=== PATIENT | female | born 1940 | race Caucasian/White ===

== ENCOUNTER 2017-12-01 17:02 | Emergency (ER) | payer MEDICARE, OTHER ==
[~2017-12-01] VITALS: Ht 170.2 cm; Wt 54.4 kg
[~2017-12-01 17:02] MED LIST: ADV50500 IH; ALBU6.7H3 IH; ALEN70TA48 PO; AMLO2.5T2 PO; CITA-278 PO; COU5T PO; FOLI0.4T2 PO; FURO-150 PO; GABA-338 PO; GUAI120L55 PO; HYDR-3965 PO; LOVA40TA76 PO; POTA20TA19 PO; TIOT18CA7 IH
[2017-12-01 18:00] LABS: INR 2.5 INR; PROTHROMBIN TIME 25.4 SECONDS (9.0-12.0)
[2017-12-01 18:41] VITALS: BP 138/63
== END 2017-12-01 18:43 | disposition home or self-care (01) ==
LOC: ER 17:03
DX: S60.212A Contusion of left wrist, initial encounter (principal); S50.12XA Contusion of left forearm, initial encounter; I25.10 Atherosclerotic heart disease of native coronary artery without angina pectoris; E78.00 Pure hypercholesterolemia, unspecified; J44.9 Chronic obstructive pulmonary disease, unspecified; Z86.711 Personal history of pulmonary embolism; Z95.1 Presence of aortocoronary bypass graft; Z90.710 Acquired absence of both cervix and uterus; Z88.6 Allergy status to analgesic agent; Z79.01 Long term (current) use of anticoagulants; Z79.899 Other long term (current) drug therapy; W18.39XA Other fall on same level, initial encounter; Y93.89 Activity, other specified; Y92.89 Other specified places as the place of occurrence of the external cause; Y99.8 Other external cause status
CPT/HCPCS: 36415; 72170; 73110; 85610; 99285

== ENCOUNTER 2018-01-01 14:09 | Inpatient (IN) | payer MEDICARE, OTHER ==
[~2018-01-01] VITALS: Ht 162.6 cm; Wt 65.0 kg
[2018-01-01] VITALS (8 sets, daily range): BP systolic 125–139; BP diastolic 44–73
[2018-01-01 15:03] LABS: BASOPHILS % (AUTO) 0.4 % (0-1); EOSINOPHILS # (AUTO) 0.3 X10'3 (0-0.9); EOSINOPHILS % (AUTO) 3.6 % (0-6); HEMOGLOBIN 7.2 g/dl (12.0-16.0); LYMPHOCYTES # (AUTO) 0.9 X10'3 (1.1-4.8); LYMPHOCYTES % (AUTO) 11.5 % (21-51); MEAN CORPUSCULAR HEMOGLOBIN 28.5 PG (27.0-31.0); MEAN CORPUSCULAR HGB CONC 32.9 % (33.0-36.5); MEAN CORPUSCULAR VOLUME 86.7 FL (78-98); MONOCYTES % (AUTO) 12.5 % (2-12); NEUTROPHILS # (AUTO) 5.5 X10'3 (1.8-7.7); PLATELET COUNT 302 X10'3 (140-440); RED BLOOD COUNT 2.51 X10'6 (4.20-5.60); RED CELL DISTRIBUTION WIDTH 13.9 % (11.5-14.5); WHITE BLOOD COUNT 7.7 X10'3 (4.5-11.0)
[2018-01-01 15:09] LABS: HEMATOCRIT 21.7 % (35.0-45.0)
[2018-01-01 15:17] LABS: ALANINE AMINOTRANSFERASE 17 U/L (12-78); ALBUMIN 2.9 G/DL (3.4-5.0); ALBUMIN/GLOBULIN RATIO 0.9 (1.1-1.5); ALKALINE PHOSPHATASE 53 IU/L (46-116); ANION GAP 5 (8-16); ASPARTATE AMINO TRANSFERASE 19 U/L (10-37); BILIRUBIN,TOTAL 0.2 MG/DL (0.1-1.0); BLOOD UREA NITROGEN 35 MG/DL (7-18); BUN/CREATININE RATIO 11.7 (6.6-38.0); CALCIUM 8.9 MG/DL (8.5-10.1); CHLORIDE 100 MMOL/L (99-107); CREATININE 2.98 MG/DL (0.40-0.90); GLUCOSE 85 MG/DL (70-104); POTASSIUM 4.1 MMOL/L (3.5-5.1); SODIUM 139 MMOL/L (135-145); TOTAL CARBON DIOXIDE 33.7 MMOL/L (24-32); TOTAL PROTEIN 6.3 G/DL (6.4-8.2); eGFR 15 ML/MIN
[2018-01-01] MEDS: dextrose 5%-1/2 normal saline 1,000 ML IV SCH (16:17)
[2018-01-01] MEDS ORDERED: mag hydrox/Alum hydrox/simeth 30ml oral suspension PO PRN (16:20)
[2018-01-01] MEDS ORDERED: acetaminophen 325mg tablet PO PRN (16:20)
[2018-01-01] MEDS ORDERED: HYDROmorphone inj. 0.5 MG/0.5 ML DISP.SYRIN IV PRN ×2 (16:20)
[2018-01-01] MEDS ORDERED: metoclopramide 5 mg/ml inj IV PRN (16:20)
[2018-01-01] MEDS ORDERED: ondansetron/PF 4mg/2ml inj IV PRN (16:20)
[2018-01-01] MEDS ORDERED: acetaminophen 650mg rectal suppository RC PRN (16:20)
[2018-01-01] MEDS ORDERED: diphenhydrAMINE 25mg capsule PO PRN (16:20)
[2018-01-01] MEDS ORDERED: magnesium hydroxide 30ml (MOM) UD suspension PO PRN (16:20)
[2018-01-01] MEDS ORDERED: diphenhydrAMINE 50 mg/ml inj IV PRN (16:20)
[2018-01-01] MEDS ORDERED: HYDROcodone/acetaminophen 5mg/325mg tablet PO PRN (16:20)
[2018-01-01] MEDS ORDERED: morphine 4 MG/ML inj SYRINge IV PRN ×2 (16:20)
[2018-01-01 16:53] LABS: PARTIAL THROMBOPLASTIN TIME 27 SECONDS (22-32); PROTHROMBIN TIME 10.7 SECONDS (9.0-12.0)
[2018-01-01 16:56] LABS: HEMOGLOBIN A1C 5.5 % (4.5-6.2)
[2018-01-01 17:05] LABS: MAGNESIUM 2.1 MG/DL (1.5-2.4); PHOSPHORUS 4.6 MG/DL (2.3-4.5)
[2018-01-01] MEDS ORDERED: FERR325T28 PO (17:49)
[2018-01-01 18:02] LABS: CLARITY,URINE Clear (Clear); COLOR,URINE Yellow (Yellow); GLUCOSE, URINE Negative (Neg); KETONES,URINE Negative (Neg); LEUKOCYTE ESTERASE ,URINE Negative (Neg); NITRITES, URINE Negative (Neg); OCCULT BLOOD,URINE Negative (Neg); PH,URINE 6.5 (4.8-8.0); PROTEIN,URINE Negative (Neg); UROBILINOGEN,URINE 0.2 E.U/dL (0.2-1.0)
[2018-01-01 18:03] LABS: UA COLLECTION TYPE CLN CATCH MIDSTREAM
[2018-01-01 18:31] LABS: PROTHROMBIN TIME 10.7 SECONDS (9.0-12.0)
[2018-01-01] MEDS ORDERED: albuterol 2.5 MG/3 ML nebule NEB SCH (19:00)
[2018-01-01] MEDS ORDERED: furosemide 40mg/4ml inj IV ONE (19:30)
[2018-01-01] MEDS ORDERED: warfarin 5mg tablet PO ONE (21:00)
[2018-01-01] MEDS ORDERED: temazepam 15mg capsule PO PRN (21:00)
[2018-01-01] MEDS: gabapentin 300mg capsule PO SCH (21:27)
[2018-01-01] MEDS: docusate sod 100mg capsule PO SCH (21:27)
[2018-01-02] VITALS (7 sets, daily range): BP systolic 109–150; BP diastolic 32–100
[2018-01-02] MEDS: ipratropium 0.5 MG/2.5ML nebule IH SCH ×2 (00:01)
[2018-01-02] MEDS: dextrose 5%-1/2 normal saline 1,000 ML IV SCH ×2 (02:08→12:00)
[2018-01-02 06:04] LABS: BASOPHILS # (AUTO) 0.1 X10'3 (0-0.2); BASOPHILS % (AUTO) 1.2 % (0-1); EOSINOPHILS # (AUTO) 0.3 X10'3 (0-0.9); EOSINOPHILS % (AUTO) 4.8 % (0-6); HEMATOCRIT 30.3 % (35.0-45.0); LYMPHOCYTES # (AUTO) 0.8 X10'3 (1.1-4.8); LYMPHOCYTES % (AUTO) 11.9 % (21-51); MEAN CORPUSCULAR HEMOGLOBIN 27.9 PG (27.0-31.0); MEAN CORPUSCULAR HGB CONC 33.1 % (33.0-36.5); MEAN CORPUSCULAR VOLUME 84.5 FL (78-98); MEAN PLATELET VOLUME 8.5 FL (7.4-10.4); MONOCYTES # (AUTO) 0.9 X10'3 (0-0.9); NEUTROPHILS # (AUTO) 4.4 X10'3 (1.8-7.7); NEUTROPHILS % (AUTO) 68.1 % (42-75); PLATELET COUNT 276 X10'3 (140-440); RED BLOOD COUNT 3.58 X10'6 (4.20-5.60); RED CELL DISTRIBUTION WIDTH 15.5 % (11.5-14.5); WHITE BLOOD COUNT 6.4 X10'3 (4.5-11.0)
[2018-01-02 06:07] LABS: INR 1.1 INR; PROTHROMBIN TIME 11.1 SECONDS (9.0-12.0)
[2018-01-02 06:29] LABS: ALANINE AMINOTRANSFERASE 19 U/L (12-78); ALBUMIN 3.1 G/DL (3.4-5.0); ALBUMIN/GLOBULIN RATIO 0.9 (1.1-1.5); ALKALINE PHOSPHATASE 59 IU/L (46-116); ANION GAP 7 (8-16); ASPARTATE AMINO TRANSFERASE 19 U/L (10-37); BILIRUBIN,TOTAL 0.7 MG/DL (0.1-1.0); BLOOD UREA NITROGEN 34 MG/DL (7-18); BUN/CREATININE RATIO 11.2 (6.6-38.0); CALCIUM 9.5 MG/DL (8.5-10.1); CHLORIDE 102 MMOL/L (99-107); CREATININE 3.03 MG/DL (0.40-0.90); GLUCOSE 112 MG/DL (70-104); POTASSIUM 3.8 MMOL/L (3.5-5.1); SODIUM 142 MMOL/L (135-145); TOTAL CARBON DIOXIDE 33.4 MMOL/L (24-32); TOTAL PROTEIN 6.7 G/DL (6.4-8.2); eGFR 15 ML/MIN
[2018-01-02] MEDS: ipratropium/albuterol 3ml nebule NEB SCH ×4 (07:22→21:26)
[2018-01-02] MEDS: budesonide 0.5mg/2ml UD nebule IH SCH ×3 (07:22→21:26)
[2018-01-02] MEDS ORDERED: amLODIPine 2.5mg tablet PO SCH (08:00)
[2018-01-02] MEDS: pantoprazole 40mg Tablet.DR PO SCH (08:55)
[2018-01-02] MEDS: docusate sod 100mg capsule PO SCH ×2 (08:55→20:06)
[2018-01-02] MEDS: folic acid 0.4mg tablet PO SCH (08:56)
[2018-01-02] MEDS: atorvastatin 10mg tablet PO SCH (08:56)
[2018-01-02] MEDS: gabapentin 300mg capsule PO SCH ×3 (08:58→22:54)
[2018-01-02 13:25] LABS: ABG BASE EXCESS 4.5 mmol/L (-2.0-3.0); ABG HCO3 30.3 mmol/L (22.0-26.0); ABG OXYGEN SATURATION 97.1 % (95-98); ABG PCO2 (T) 51.4 mmHg (32.0-45.0); ABG PH (T) 7.389 (7.350-7.450); ABG PO2 (T) 97.7 mmHg (83-108); ALLEN'S TEST Positive; FLOW 4 L/min; FMetHb 0.1 % (0.3-1.12); TOTAL HEMOGLOBIN 10.4 G/dl (12.0-16.0)
[2018-01-02] MEDS ORDERED: heparin 10,000 units/1 ML INJ IV PRN (15:30)
[2018-01-02] MEDS ORDERED: heparin 10,000 units/1 ML INJ IV ONE (15:30)
[2018-01-02 16:31] LABS: BASOPHILS # (AUTO) 0.1 X10'3 (0-0.2); BASOPHILS % (AUTO) 1.1 % (0-1); EOSINOPHILS # (AUTO) 0.3 X10'3 (0-0.9); EOSINOPHILS % (AUTO) 4.7 % (0-6); HEMATOCRIT 26.3 % (35.0-45.0); HEMOGLOBIN 8.8 g/dl (12.0-16.0); LYMPHOCYTES # (AUTO) 0.8 X10'3 (1.1-4.8); LYMPHOCYTES % (AUTO) 14.1 % (21-51); MEAN CORPUSCULAR HEMOGLOBIN 28.3 PG (27.0-31.0); MEAN CORPUSCULAR HGB CONC 33.4 % (33.0-36.5); MEAN CORPUSCULAR VOLUME 84.7 FL (78-98); MONOCYTES % (AUTO) 19.2 % (2-12); NEUTROPHILS # (AUTO) 3.3 X10'3 (1.8-7.7); NEUTROPHILS % (AUTO) 60.9 % (42-75); PLATELET COUNT 230 X10'3 (140-440); RED CELL DISTRIBUTION WIDTH 15.9 % (11.5-14.5); WHITE BLOOD COUNT 5.4 X10'3 (4.5-11.0)
[2018-01-02 16:51] LABS: % IRON SATURATION 7 % (11-46); IRON 20 UG/DL (49-151); TOTAL IRON BINDING CAPACITY 268 UG/DL (259-388)
[2018-01-02 17:44] LABS: TOTAL CELLS COUNTED 100
[2018-01-02 17:45] LABS: PLATELET ESTIMATE NORMAL
[2018-01-02 17:58] LABS: ANISOCYTOSIS 1+
[2018-01-02 17:59] LABS: POLYCHROMASIA FEW
[2018-01-02] MEDS: carVEDilol 3.125mg tablet PO SCH (20:03)
[2018-01-02] MEDS ORDERED: warfarin 5mg tablet PO SCH (21:00)
[2018-01-02] MEDS ORDERED: warfarin 5mg tablet PO ONE ×2 (21:00)
[2018-01-02 23:13] LABS: BASOPHILS # (AUTO) 0.1 X10'3 (0-0.2); BASOPHILS % (AUTO) 1.1 % (0-1); EOSINOPHILS # (AUTO) 0.4 X10'3 (0-0.9); EOSINOPHILS % (AUTO) 6.9 % (0-6); HEMATOCRIT 28.1 % (35.0-45.0); HEMOGLOBIN 9.5 g/dl (12.0-16.0); LYMPHOCYTES # (AUTO) 0.8 X10'3 (1.1-4.8); LYMPHOCYTES % (AUTO) 14.1 % (21-51); MEAN CORPUSCULAR HEMOGLOBIN 28.3 PG (27.0-31.0); MEAN CORPUSCULAR HGB CONC 33.9 % (33.0-36.5); MEAN CORPUSCULAR VOLUME 83.4 FL (78-98); MEAN PLATELET VOLUME 7.7 FL (7.4-10.4); MONOCYTES # (AUTO) 0.9 X10'3 (0-0.9); MONOCYTES % (AUTO) 15.7 % (2-12); NEUTROPHILS # (AUTO) 3.7 X10'3 (1.8-7.7); NEUTROPHILS % (AUTO) 62.2 % (42-75); PLATELET COUNT 235 X10'3 (140-440); RED BLOOD COUNT 3.37 X10'6 (4.20-5.60); RED CELL DISTRIBUTION WIDTH 15.7 % (11.5-14.5)
[2018-01-03] VITALS: BP 139/51
[2018-01-03] MEDS: dextrose 5%-1/2 normal saline 1,000 ML IV SCH ×3 (00:22→23:54)
[2018-01-03 02:28] LABS: BASOPHILS # (AUTO) 0.1 X10'3 (0-0.2); BASOPHILS % (AUTO) 1.5 % (0-1); EOSINOPHILS # (AUTO) 0.3 X10'3 (0-0.9); EOSINOPHILS % (AUTO) 6.3 % (0-6); HEMATOCRIT 28.5 % (35.0-45.0); HEMOGLOBIN 9.4 g/dl (12.0-16.0); LYMPHOCYTES # (AUTO) 0.7 X10'3 (1.1-4.8); LYMPHOCYTES % (AUTO) 12.8 % (21-51); MEAN CORPUSCULAR HEMOGLOBIN 28.3 PG (27.0-31.0); MEAN CORPUSCULAR HGB CONC 33.1 % (33.0-36.5); MEAN CORPUSCULAR VOLUME 85.4 FL (78-98); MEAN PLATELET VOLUME 8.4 FL (7.4-10.4); MONOCYTES # (AUTO) 0.8 X10'3 (0-0.9); MONOCYTES % (AUTO) 16.1 % (2-12); NEUTROPHILS # (AUTO) 3.3 X10'3 (1.8-7.7); NEUTROPHILS % (AUTO) 63.3 % (42-75); PLATELET COUNT 238 X10'3 (140-440); RED BLOOD COUNT 3.33 X10'6 (4.20-5.60); RED CELL DISTRIBUTION WIDTH 15.3 % (11.5-14.5); WHITE BLOOD COUNT 5.2 X10'3 (4.5-11.0)
[2018-01-03 02:34] LABS: INR 1.4 INR; PROTHROMBIN TIME 13.9 SECONDS (9.0-12.0)
[2018-01-03 07:00] VITALS: BP 101/62
[2018-01-03] MEDS: ipratropium/albuterol 3ml nebule NEB SCH ×4 (07:01→19:09)
[2018-01-03] MEDS: budesonide 0.5mg/2ml UD nebule IH SCH ×2 (07:01→19:08)
[2018-01-03] MEDS: docusate sod 100mg capsule PO SCH ×2 (08:15→20:07)
[2018-01-03] MEDS: pantoprazole 40mg Tablet.DR PO SCH (08:15)
[2018-01-03] MEDS: carVEDilol 3.125mg tablet PO SCH ×2 (08:16→20:07)
[2018-01-03] MEDS: gabapentin 300mg capsule PO SCH ×2 (08:16→13:12)
[2018-01-03] MEDS: clopidogrel 75mg tablet PO SCH (08:16)
[2018-01-03] MEDS: folic acid 0.4mg tablet PO SCH (08:16)
[2018-01-03] MEDS: atorvastatin 10mg tablet PO SCH (08:16)
[2018-01-03 09:27] LABS: BASOPHILS # (AUTO) 0.1 X10'3 (0-0.2); BASOPHILS % (AUTO) 0.9 % (0-1); EOSINOPHILS # (AUTO) 0.3 X10'3 (0-0.9); EOSINOPHILS % (AUTO) 5.4 % (0-6); HEMATOCRIT 31.2 % (35.0-45.0); HEMOGLOBIN 10.2 g/dl (12.0-16.0); LYMPHOCYTES # (AUTO) 0.8 X10'3 (1.1-4.8); LYMPHOCYTES % (AUTO) 13.4 % (21-51); MEAN CORPUSCULAR HEMOGLOBIN 27.8 PG (27.0-31.0); MEAN CORPUSCULAR HGB CONC 32.8 % (33.0-36.5); MEAN CORPUSCULAR VOLUME 84.9 FL (78-98); MEAN PLATELET VOLUME 8.4 FL (7.4-10.4); MONOCYTES # (AUTO) 1.1 X10'3 (0-0.9); MONOCYTES % (AUTO) 17.3 % (2-12); NEUTROPHILS # (AUTO) 3.9 X10'3 (1.8-7.7); PLATELET COUNT 238 X10'3 (140-440); RED BLOOD COUNT 3.68 X10'6 (4.20-5.60); RED CELL DISTRIBUTION WIDTH 15.8 % (11.5-14.5); WHITE BLOOD COUNT 6.2 X10'3 (4.5-11.0)
[2018-01-03 09:41] LABS: ALANINE AMINOTRANSFERASE 18 U/L (12-78); ALBUMIN 2.8 G/DL (3.4-5.0); ALBUMIN/GLOBULIN RATIO 0.8 (1.1-1.5); ALKALINE PHOSPHATASE 54 IU/L (46-116); ANION GAP 7 (8-16); ASPARTATE AMINO TRANSFERASE 16 U/L (10-37); BILIRUBIN,TOTAL 0.3 MG/DL (0.1-1.0); BLOOD UREA NITROGEN 29 MG/DL (7-18); BUN/CREATININE RATIO 11.2 (6.6-38.0); CALCIUM 8.9 MG/DL (8.5-10.1); CHLORIDE 99 MMOL/L (99-107); CREATININE 2.59 MG/DL (0.40-0.90); GLUCOSE 108 MG/DL (70-104); POTASSIUM 3.9 MMOL/L (3.5-5.1); SODIUM 136 MMOL/L (135-145); TOTAL CARBON DIOXIDE 29.7 MMOL/L (24-32); TOTAL PROTEIN 6.4 G/DL (6.4-8.2); eGFR 18 ML/MIN
[2018-01-03 11:00] VITALS: BP 125/53
[2018-01-03] MEDS: levoFLOXACIN-Levaquin 750MG/D5 150 ML IV SCH (13:45)
[2018-01-03 19:00] VITALS: BP 121/69
[2018-01-03] MEDS ORDERED: warfarin 5mg tablet PO ONE (21:00)
[2018-01-03] MEDS: acetaminophen 325mg tablet PO PRN (21:44)
[2018-01-04] VITALS: BP 119/65
[2018-01-04] MEDS: albuterol 2.5 MG/3 ML nebule NEB PRN (01:50)
[2018-01-04] MEDS: ipratropium/albuterol 3ml nebule NEB SCH ×4 (06:21→20:09)
[2018-01-04 07:19] VITALS: BP 138/72
[2018-01-04] MEDS: pantoprazole 40mg Tablet.DR PO SCH (07:44)
[2018-01-04] MEDS: clopidogrel 75mg tablet PO SCH (07:44)
[2018-01-04] MEDS: docusate sod 100mg capsule PO SCH ×2 (07:44→20:00)
[2018-01-04] MEDS: gabapentin 300mg capsule PO SCH (07:44)
[2018-01-04] MEDS: folic acid 0.4mg tablet PO SCH (07:44)
[2018-01-04] MEDS: carVEDilol 3.125mg tablet PO SCH ×2 (07:44→19:16)
[2018-01-04] MEDS: atorvastatin 10mg tablet PO SCH (07:44)
[2018-01-04 07:50] LABS: BASOPHILS % (AUTO) 0.7 % (0-1); EOSINOPHILS # (AUTO) 0.1 X10'3 (0-0.9); EOSINOPHILS % (AUTO) 3.5 % (0-6); HEMOGLOBIN 9.4 g/dl (12.0-16.0); LYMPHOCYTES # (AUTO) 0.5 X10'3 (1.1-4.8); LYMPHOCYTES % (AUTO) 12.6 % (21-51); MEAN CORPUSCULAR HEMOGLOBIN 28.4 PG (27.0-31.0); MEAN CORPUSCULAR HGB CONC 33.3 % (33.0-36.5); MEAN CORPUSCULAR VOLUME 85.1 FL (78-98); MEAN PLATELET VOLUME 7.8 FL (7.4-10.4); MONOCYTES # (AUTO) 0.6 X10'3 (0-0.9); MONOCYTES % (AUTO) 16.8 % (2-12); NEUTROPHILS # (AUTO) 2.5 X10'3 (1.8-7.7); NEUTROPHILS % (AUTO) 66.4 % (42-75); PLATELET COUNT 195 X10'3 (140-440); RED CELL DISTRIBUTION WIDTH 15.5 % (11.5-14.5); WHITE BLOOD COUNT 3.8 X10'3 (4.5-11.0)
[2018-01-04 08:02] LABS: INR 1.9 INR; PROTHROMBIN TIME 19.6 SECONDS (9.0-12.0)
[2018-01-04 08:08] LABS: ALANINE AMINOTRANSFERASE 15 U/L (12-78); ALBUMIN 2.5 G/DL (3.4-5.0); ALBUMIN/GLOBULIN RATIO 0.7 (1.1-1.5); ALKALINE PHOSPHATASE 51 IU/L (46-116); ANION GAP 5 (8-16); ASPARTATE AMINO TRANSFERASE 18 U/L (10-37); BILIRUBIN,TOTAL 0.3 MG/DL (0.1-1.0); BLOOD UREA NITROGEN 28 MG/DL (7-18); BUN/CREATININE RATIO 10.7 (6.6-38.0); CHLORIDE 97 MMOL/L (99-107); CREATININE 2.62 MG/DL (0.40-0.90); GLUCOSE 101 MG/DL (70-104); POTASSIUM 3.7 MMOL/L (3.5-5.1); SODIUM 134 MMOL/L (135-145); TOTAL CARBON DIOXIDE 31.6 MMOL/L (24-32); TOTAL PROTEIN 5.9 G/DL (6.4-8.2); eGFR 18 ML/MIN
[2018-01-04] MEDS: acetaminophen 325mg tablet PO PRN (09:47)
[2018-01-04] MEDS: budesonide 0.5mg/2ml UD nebule IH SCH ×2 (10:53→20:09)
[2018-01-04 11:15] VITALS: BP 165/72
[2018-01-04] MEDS: LORazepam 2 mg/ml vial IV PRN (15:42)
[2018-01-04] MEDS: dextrose 5%-1/2 normal saline 1,000 ML IV SCH ×2 (16:20→23:22)
[2018-01-04 19:00] VITALS: BP 170/68
[2018-01-04] MEDS ORDERED: flumazenil 0.1 mg/ml inj. IV ONE ×2 (20:09→20:15)
[2018-01-04 20:16] LABS: ABG BASE EXCESS -1.9 mmol/L (-2.0-3.0); ABG HCO3 28.8 mmol/L (22.0-26.0); ABG OXYGEN SATURATION 92.6 % (95-98); ABG PCO2 (T) 87.1 mmHg (32.0-45.0); ABG PH (T) 7.138 (7.350-7.450); ABG PO2 (T) 76.3 mmHg (83-108); FCOHb 0.3 % (0.5-1.5); FLOW 2 L/min; FMetHb 0.3 % (0.3-1.12); PATIENT TEMPERATURE 37.1; RESPIRATORY RATE (OBSERVED) 20 b/min; TOTAL HEMOGLOBIN 11.5 G/dl (12.0-16.0)
[2018-01-04] MEDS ORDERED: furosemide 40mg/4ml inj IV ONE (20:20)
[2018-01-04] MEDS ORDERED: warfarin 5mg tablet PO ONE (21:00)
[2018-01-04 22:00] VITALS: BP 121/59
[2018-01-04 22:25] LABS: ABG BASE EXCESS 0.6 mmol/L (-2.0-3.0); ABG HCO3 27.9 mmol/L (22.0-26.0); ABG OXYGEN SATURATION 96.1 % (95-98); ABG PCO2 (T) 57.6 mmHg (32.0-45.0); ABG PH (T) 7.303 (7.350-7.450); ABG PO2 (T) 83.4 mmHg (83-108); ALLEN'S TEST Positive; FCOHb 0.1 % (0.5-1.5); FMetHb 0.2 % (0.3-1.12); FO2Hb 95.8 % (94-100); RESPIRATORY RATE 18 b/min; RESPIRATORY RATE (OBSERVED) 22 b/min; TOTAL HEMOGLOBIN 11.4 G/dl (12.0-16.0)
[2018-01-04 23:00] VITALS: BP 109/59
[2018-01-05 00:15] VITALS: BP 117/68
[2018-01-05 03:00] VITALS: BP 128/16
[2018-01-05 05:50] LABS: HEMATOCRIT 31.9 % (35.0-45.0); HEMOGLOBIN 10.7 g/dl (12.0-16.0); MEAN CORPUSCULAR HGB CONC 33.4 % (33.0-36.5); MEAN CORPUSCULAR VOLUME 83.8 FL (78-98); MEAN PLATELET VOLUME 8.4 FL (7.4-10.4); PLATELET COUNT 192 X10'3 (140-440); RED BLOOD COUNT 3.81 X10'6 (4.20-5.60); RED CELL DISTRIBUTION WIDTH 14.7 % (11.5-14.5); WHITE BLOOD COUNT 5.8 X10'3 (4.5-11.0)
[2018-01-05 06:00] VITALS: BP 122/59
[2018-01-05 06:05] LABS: INR 2.7 INR; PROTHROMBIN TIME 27.4 SECONDS (9.0-12.0)
[2018-01-05 06:28] LABS: ALANINE AMINOTRANSFERASE 18 U/L (12-78); ALBUMIN 2.7 G/DL (3.4-5.0); ALBUMIN/GLOBULIN RATIO 0.7 (1.1-1.5); ALKALINE PHOSPHATASE 57 IU/L (46-116); ANION GAP 11 (8-16); ASPARTATE AMINO TRANSFERASE 32 U/L (10-37); BILIRUBIN,TOTAL 0.3 MG/DL (0.1-1.0); BLOOD UREA NITROGEN 27 MG/DL (7-18); BUN/CREATININE RATIO 11.5 (6.6-38.0); CALCIUM 8.3 MG/DL (8.5-10.1); CHLORIDE 90 MMOL/L (99-107); CREATININE 2.34 MG/DL (0.40-0.90); GLUCOSE 122 MG/DL (70-104); SODIUM 128 MMOL/L (135-145); TOTAL CARBON DIOXIDE 26.9 MMOL/L (24-32); TOTAL PROTEIN 6.5 G/DL (6.4-8.2); eGFR 20 ML/MIN
[2018-01-05 06:45] LABS: TOTAL CELLS COUNTED 100
[2018-01-05 06:46] LABS: PLATELET ESTIMATE NORMAL
[2018-01-05] MEDS: budesonide 0.5mg/2ml UD nebule IH SCH ×2 (07:56→19:10)
[2018-01-05] MEDS: levoFLOXACIN-Levaquin 750MG/D5 150 ML IV SCH (07:56)
[2018-01-05] MEDS: pantoprazole 40mg Tablet.DR PO SCH (07:56)
[2018-01-05] MEDS: carVEDilol 3.125mg tablet PO SCH ×2 (08:02→20:10)
[2018-01-05] MEDS: clopidogrel 75mg tablet PO SCH (08:02)
[2018-01-05] MEDS: docusate sod 100mg capsule PO SCH ×2 (08:02→20:10)
[2018-01-05] MEDS: atorvastatin 10mg tablet PO SCH (08:02)
[2018-01-05] MEDS: gabapentin 300mg capsule PO SCH (08:08)
[2018-01-05] MEDS: folic acid 0.4mg tablet PO SCH (08:08)
[2018-01-05] MEDS ORDERED: guaiFENesin 200 MG/10 ML oral syrup UD cup PO PRN (09:30)
[2018-01-05] MEDS ORDERED: piperacillin/tazo 3.375gm/50ml 50 ML IV SCH (09:30)
[2018-01-05] MEDS: ipratropium/albuterol 3ml nebule NEB SCH ×5 (09:59→23:02)
[2018-01-05] MEDS: ferrous gluconate 324mg tablet PO SCH (10:30)
[2018-01-05] MEDS: methylPREDNISolone sod succ 125mg/2ml vial IV SCH ×3 (10:30→20:10)
[2018-01-05 11:00] VITALS: BP 136/72
[2018-01-05 11:26] LABS: ABG BASE EXCESS 4.2 mmol/L (-2.0-3.0); ABG HCO3 32.9 mmol/L (22.0-26.0); ABG OXYGEN SATURATION 89.7 % (95-98); ABG PCO2 (T) 68.5 mmHg (32.0-45.0); ABG PH (T) 7.295 (7.350-7.450); ABG PO2 (T) 51.9 mmHg (83-108); ALLEN'S TEST Positive; FCOHb 0.2 % (0.5-1.5); FLOW 4 L/min; FMetHb 0.1 % (0.3-1.12); FO2Hb 89.4 % (94-100); PATIENT TEMPERATURE 36.2; TOTAL HEMOGLOBIN 12.4 G/dl (12.0-16.0)
[2018-01-05 15:21] LABS: ABG BASE EXCESS 2.1 mmol/L (-2.0-3.0); ABG HCO3 28.2 mmol/L (22.0-26.0); ABG OXYGEN SATURATION 97.7 % (95-98); ABG PCO2 (T) 49.1 mmHg (32.0-45.0); ABG PH (T) 7.374 (7.350-7.450); ALLEN'S TEST Positive; FCOHb 0.2 % (0.5-1.5); FMetHb 0.2 % (0.3-1.12); FO2Hb 97.3 % (94-100); MINUTE VOLUME 11 L/min; PATIENT TEMPERATURE 36.5; PEEP 5 cm H2O; RESPIRATORY RATE 12 b/min; RESPIRATORY RATE (OBSERVED) 18 b/min; TIDAL VOLUME 796 mL; TOTAL HEMOGLOBIN 12.1 G/dl (12.0-16.0)
[2018-01-05] MEDS: metroNIDAZOLE-Flagyl 500mg/NS 100 ML IV SCH (18:22)
[2018-01-05] MEDS: vancomycin/NS 1 GM ADD-VANTAGE 250 ML IV SCH (18:43)
[2018-01-05 19:00] VITALS: BP 140/86
[2018-01-05] MEDS ORDERED: vancomycin/NS 1 GM ADD-VANTAGE 250 ML IV SCH (20:00)
[2018-01-05] MEDS: lactobacillus rhamnosus 10,000 MMU CELLS/CAPSULE PO SCH (20:10)
[2018-01-05] MEDS: cefepime 1GM/NS ADD-VANTAGE 100 ML IV SCH (20:57)
[2018-01-05 23:00] VITALS: BP 134/86
[2018-01-06] VITALS (9 sets, daily range): BP systolic 122–194; BP diastolic 48–97
[2018-01-06] MEDS: dextrose 5%-1/2 normal saline 1,000 ML IV SCH ×2 (00:02→14:58)
[2018-01-06] MEDS: metroNIDAZOLE-Flagyl 500mg/NS 100 ML IV SCH ×4 (00:02→23:34)
[2018-01-06] MEDS: methylPREDNISolone sod succ 125mg/2ml vial IV SCH ×4 (01:48→20:25)
[2018-01-06] MEDS: ipratropium/albuterol 3ml nebule NEB SCH ×6 (02:59→22:59)
[2018-01-06 05:35] LABS: BASOPHILS % (AUTO) 0.2 % (0-1); EOSINOPHILS % (AUTO) 0 % (0-6); HEMATOCRIT 30.9 % (35.0-45.0); HEMOGLOBIN 10.5 g/dl (12.0-16.0); LYMPHOCYTES # (AUTO) 0.3 X10'3 (1.1-4.8); LYMPHOCYTES % (AUTO) 20.8 % (21-51); MEAN CORPUSCULAR HEMOGLOBIN 27.9 PG (27.0-31.0); MEAN CORPUSCULAR HGB CONC 33.8 % (33.0-36.5); MEAN CORPUSCULAR VOLUME 82.6 FL (78-98); MEAN PLATELET VOLUME 8.7 FL (7.4-10.4); MONOCYTES # (AUTO) 0.2 X10'3 (0-0.9); MONOCYTES % (AUTO) 15.4 % (2-12); NEUTROPHILS % (AUTO) 63.6 % (42-75); PLATELET COUNT 206 X10'3 (140-440); RED BLOOD COUNT 3.75 X10'6 (4.20-5.60); RED CELL DISTRIBUTION WIDTH 14.3 % (11.5-14.5); WHITE BLOOD COUNT 1.6 X10'3 (4.5-11.0)
[2018-01-06 05:55] LABS: PROTHROMBIN TIME 39.3 SECONDS (9.0-12.0)
[2018-01-06 06:18] LABS: ANISOCYTOSIS 1+; LARGE PLATELETS FEW; MICROCYTOSIS 1+; PLATELET ESTIMATE NORMAL; TOTAL CELLS COUNTED 100
[2018-01-06 06:19] LABS: ALANINE AMINOTRANSFERASE 19 U/L (12-78); ALBUMIN 2.6 G/DL (3.4-5.0); ALBUMIN/GLOBULIN RATIO 0.7 (1.1-1.5); ALKALINE PHOSPHATASE 50 IU/L (46-116); ANION GAP 12 (8-16); ASPARTATE AMINO TRANSFERASE 32 U/L (10-37); BILIRUBIN,TOTAL 0.3 MG/DL (0.1-1.0); BLOOD UREA NITROGEN 33 MG/DL (7-18); BUN/CREATININE RATIO 12.8 (6.6-38.0); CALCIUM 8.3 MG/DL (8.5-10.1); CHLORIDE 90 MMOL/L (99-107); CREATININE 2.58 MG/DL (0.40-0.90); GLUCOSE 168 MG/DL (70-104); POTASSIUM 3.9 MMOL/L (3.5-5.1); SODIUM 127 MMOL/L (135-145); TOTAL CARBON DIOXIDE 24.9 MMOL/L (24-32); TOTAL PROTEIN 6.4 G/DL (6.4-8.2); eGFR 18 ML/MIN
[2018-01-06] MEDS: budesonide 0.5mg/2ml UD nebule IH SCH ×2 (07:29→19:18)
[2018-01-06 07:50] LABS: ABG BASE EXCESS 0.8 mmol/L (-2.0-3.0); ABG HCO3 26.5 mmol/L (22.0-26.0); ABG OXYGEN SATURATION 95.6 % (95-98); ABG PCO2 (T) 46.7 mmHg (32.0-45.0); ABG PH (T) 7.371 (7.350-7.450); ABG PO2 (T) 80.4 mmHg (83-108); ALLEN'S TEST Positive; FCOHb 0.3 % (0.5-1.5); FLOW 3 L/min; FO2Hb 95.3 % (94-100); TOTAL HEMOGLOBIN 11.1 G/dl (12.0-16.0)
[2018-01-06] MEDS: cefepime 1GM/NS ADD-VANTAGE 100 ML IV SCH ×2 (08:20→20:25)
[2018-01-06] MEDS: docusate sod 100mg capsule PO SCH ×2 (08:20→20:25)
[2018-01-06] MEDS: folic acid 0.4mg tablet PO SCH (08:21)
[2018-01-06] MEDS: pantoprazole 40mg Tablet.DR PO SCH (08:21)
[2018-01-06] MEDS: atorvastatin 10mg tablet PO SCH (08:21)
[2018-01-06] MEDS: lactobacillus rhamnosus 10,000 MMU CELLS/CAPSULE PO SCH (08:21)
[2018-01-06] MEDS: gabapentin 300mg capsule PO SCH (08:21)
[2018-01-06] MEDS: carVEDilol 3.125mg tablet PO SCH ×2 (08:21→20:25)
[2018-01-06] MEDS: ferrous gluconate 324mg tablet PO SCH ×2 (08:27→08:58)
[2018-01-06] MEDS: clopidogrel 75mg tablet PO SCH (08:58)
[2018-01-06] MEDS: benzonatate 100mg capsule PO SCH ×2 (09:00→16:00)
[2018-01-06 09:26] LABS: HEMATOCRIT 30.4 % (35.0-45.0); HEMOGLOBIN 10.1 g/dl (12.0-16.0); MEAN CORPUSCULAR HGB CONC 33.2 % (33.0-36.5); MEAN CORPUSCULAR VOLUME 84.3 FL (78-98); MEAN PLATELET VOLUME 8.4 FL (7.4-10.4); PLATELET COUNT 205 X10'3 (140-440); RED BLOOD COUNT 3.61 X10'6 (4.20-5.60); RED CELL DISTRIBUTION WIDTH 14.6 % (11.5-14.5); WHITE BLOOD COUNT 1.7 X10'3 (4.5-11.0)
[2018-01-06 09:53] LABS: TOTAL CELLS COUNTED 100
[2018-01-06 09:54] LABS: ANISOCYTOSIS 1+; LARGE PLATELETS FEW; MICROCYTOSIS 1+; PLATELET ESTIMATE NORMAL
[2018-01-06] MEDS ORDERED: benzonatate 100mg capsule PO SCH (16:00)
[2018-01-06] MEDS: vancomycin/NS 1 GM ADD-VANTAGE 250 ML IV SCH (18:57)
[2018-01-06] MEDS: LORazepam 2 mg/ml vial IV PRN (21:04)
[2018-01-07] VITALS (9 sets, daily range): BP systolic 104–174; BP diastolic 46–77
[2018-01-07] MEDS: methylPREDNISolone sod succ 125mg/2ml vial IV SCH ×3 (01:20→19:10)
[2018-01-07] MEDS: dextrose 5%-1/2 normal saline 1,000 ML IV SCH (02:04)
[2018-01-07] MEDS: ipratropium/albuterol 3ml nebule NEB SCH ×6 (03:24→22:31)
[2018-01-07 06:08] LABS: BASOPHILS % (AUTO) 0.4 % (0-1); EOSINOPHILS % (AUTO) 0 % (0-6); HEMATOCRIT 29.3 % (35.0-45.0); HEMOGLOBIN 9.9 g/dl (12.0-16.0); LYMPHOCYTES # (AUTO) 0.4 X10'3 (1.1-4.8); LYMPHOCYTES % (AUTO) 15.7 % (21-51); MEAN CORPUSCULAR HGB CONC 33.8 % (33.0-36.5); MEAN CORPUSCULAR VOLUME 82.8 FL (78-98); MEAN PLATELET VOLUME 8.6 FL (7.4-10.4); MONOCYTES # (AUTO) 0.5 X10'3 (0-0.9); MONOCYTES % (AUTO) 19.4 % (2-12); NEUTROPHILS # (AUTO) 1.7 X10'3 (1.8-7.7); NEUTROPHILS % (AUTO) 64.5 % (42-75); PLATELET COUNT 218 X10'3 (140-440); RED BLOOD COUNT 3.53 X10'6 (4.20-5.60); RED CELL DISTRIBUTION WIDTH 14.6 % (11.5-14.5); WHITE BLOOD COUNT 2.6 X10'3 (4.5-11.0)
[2018-01-07 06:18] LABS: PROTHROMBIN TIME 50.3 SECONDS (9.0-12.0)
[2018-01-07 06:23] LABS: ALANINE AMINOTRANSFERASE 20 U/L (12-78); ALBUMIN 2.6 G/DL (3.4-5.0); ALBUMIN/GLOBULIN RATIO 0.8 (1.1-1.5); ALKALINE PHOSPHATASE 45 IU/L (46-116); ANION GAP 11 (8-16); ASPARTATE AMINO TRANSFERASE 22 U/L (10-37); BILIRUBIN,TOTAL 0.3 MG/DL (0.1-1.0); BLOOD UREA NITROGEN 41 MG/DL (7-18); BUN/CREATININE RATIO 15.5 (6.6-38.0); CALCIUM 8.1 MG/DL (8.5-10.1); CHLORIDE 95 MMOL/L (99-107); CREATININE 2.64 MG/DL (0.40-0.90); GLUCOSE 130 MG/DL (70-104); POTASSIUM 3.4 MMOL/L (3.5-5.1); SODIUM 131 MMOL/L (135-145); TOTAL CARBON DIOXIDE 24.7 MMOL/L (24-32); eGFR 18 ML/MIN
[2018-01-07 06:35] LABS: INR 5.2 INR
[2018-01-07 06:49] LABS: PLATELET ESTIMATE NORMAL; SMUDGE CELLS 1+; TOTAL CELLS COUNTED 100
[2018-01-07] MEDS: budesonide 0.5mg/2ml UD nebule IH SCH ×2 (07:21→20:07)
[2018-01-07] MEDS: LORazepam 2 mg/ml vial IV PRN ×2 (07:41→17:35)
[2018-01-07] MEDS: cefepime 1GM/NS ADD-VANTAGE 100 ML IV SCH ×2 (09:28→20:53)
[2018-01-07] MEDS: metroNIDAZOLE-Flagyl 500mg/NS 100 ML IV SCH ×2 (09:38→17:38)
[2018-01-07] MEDS: pantoprazole 40mg Tablet.DR PO SCH (10:08)
[2018-01-07] MEDS: gabapentin 300mg capsule PO SCH (10:08)
[2018-01-07] MEDS: ferrous gluconate 324mg tablet PO SCH (10:09)
[2018-01-07] MEDS: carVEDilol 3.125mg tablet PO SCH ×2 (10:09→19:11)
[2018-01-07] MEDS: benzonatate 100mg capsule PO SCH ×3 (10:09→17:39)
[2018-01-07] MEDS: atorvastatin 10mg tablet PO SCH (10:09)
[2018-01-07] MEDS: folic acid 0.4mg tablet PO SCH (10:09)
[2018-01-07] MEDS: clopidogrel 75mg tablet PO SCH (10:10)
[2018-01-07] MEDS: docusate sod 100mg capsule PO SCH ×2 (10:10→19:11)
[2018-01-07] MEDS: albuterol 2.5 MG/3 ML nebule NEB PRN (17:52)
[2018-01-07] MEDS ORDERED: potassium Cl 20 mEq SR tablet PO ONE (18:55)
[2018-01-07] MEDS: vancomycin/NS 1 GM ADD-VANTAGE 250 ML IV SCH (19:10)
[2018-01-08] MEDS: methylPREDNISolone sod succ 125mg/2ml vial IV SCH ×5 (01:06→23:55)
[2018-01-08] MEDS: metroNIDAZOLE-Flagyl 500mg/NS 100 ML IV SCH ×4 (01:06→23:55)
[2018-01-08 02:28] VITALS: BP 133/54
[2018-01-08] MEDS: ipratropium/albuterol 3ml nebule NEB SCH ×6 (03:18→23:29)
[2018-01-08 05:19] LABS: BASOPHILS % (AUTO) 0.1 % (0-1); EOSINOPHILS % (AUTO) 0 % (0-6); HEMATOCRIT 29.8 % (35.0-45.0); LYMPHOCYTES # (AUTO) 0.4 X10'3 (1.1-4.8); LYMPHOCYTES % (AUTO) 14.5 % (21-51); MEAN CORPUSCULAR HGB CONC 33.4 % (33.0-36.5); MEAN CORPUSCULAR VOLUME 83.9 FL (78-98); MEAN PLATELET VOLUME 8.5 FL (7.4-10.4); MONOCYTES # (AUTO) 0.4 X10'3 (0-0.9); MONOCYTES % (AUTO) 16.3 % (2-12); NEUTROPHILS # (AUTO) 1.8 X10'3 (1.8-7.7); NEUTROPHILS % (AUTO) 69.1 % (42-75); PLATELET COUNT 231 X10'3 (140-440); RED BLOOD COUNT 3.56 X10'6 (4.20-5.60); RED CELL DISTRIBUTION WIDTH 14.9 % (11.5-14.5); WHITE BLOOD COUNT 2.7 X10'3 (4.5-11.0)
[2018-01-08 05:35] LABS: PROTHROMBIN TIME 52.7 SECONDS (9.0-12.0)
[2018-01-08 05:47] LABS: ALANINE AMINOTRANSFERASE 19 U/L (12-78); ALBUMIN 2.7 G/DL (3.4-5.0); ALBUMIN/GLOBULIN RATIO 0.8 (1.1-1.5); ALKALINE PHOSPHATASE 41 IU/L (46-116); ANION GAP 7 (8-16); ASPARTATE AMINO TRANSFERASE 20 U/L (10-37); BILIRUBIN,TOTAL 0.3 MG/DL (0.1-1.0); BLOOD UREA NITROGEN 46 MG/DL (7-18); BUN/CREATININE RATIO 19.2 (6.6-38.0); CALCIUM 8.1 MG/DL (8.5-10.1); CHLORIDE 100 MMOL/L (99-107); GLUCOSE 149 MG/DL (70-104); POTASSIUM 4.3 MMOL/L (3.5-5.1); SODIUM 135 MMOL/L (135-145); TOTAL CARBON DIOXIDE 28.3 MMOL/L (24-32); eGFR 20 ML/MIN
[2018-01-08 05:52] LABS: INR 5.4 INR
[2018-01-08 06:00] VITALS: BP 152/59
[2018-01-08 06:44] LABS: LARGE PLATELETS FEW; PLATELET ESTIMATE NORMAL; TOTAL CELLS COUNTED 100
[2018-01-08] MEDS: budesonide 0.5mg/2ml UD nebule IH SCH ×2 (07:17→19:42)
[2018-01-08] MEDS: cefepime 1GM/NS ADD-VANTAGE 100 ML IV SCH ×2 (07:44→19:22)
[2018-01-08] MEDS: benzonatate 100mg capsule PO SCH ×3 (08:00→16:00)
[2018-01-08] MEDS: gabapentin 300mg capsule PO SCH (08:04)
[2018-01-08] MEDS: ferrous gluconate 324mg tablet PO SCH (08:05)
[2018-01-08] MEDS: carVEDilol 3.125mg tablet PO SCH ×2 (08:05→19:22)
[2018-01-08] MEDS: docusate sod 100mg capsule PO SCH ×2 (08:06→19:23)
[2018-01-08] MEDS: atorvastatin 10mg tablet PO SCH (08:06)
[2018-01-08] MEDS: folic acid 0.4mg tablet PO SCH (08:06)
[2018-01-08] MEDS: pantoprazole 40mg Tablet.DR PO SCH (08:06)
[2018-01-08] MEDS: clopidogrel 75mg tablet PO SCH (08:28)
[2018-01-08] MEDS: bisacodyl 10mg suppository rectal RC PRN (10:34)
[2018-01-08 11:00] VITALS: BP 164/72
[2018-01-08] MEDS ORDERED: hydrALAZINE 20mg/ml inj. IV PRN (12:55)
[2018-01-08] MEDS: citalopram 20mg tablet PO SCH (13:00)
[2018-01-08] MEDS: LACTOSE-FREE FOOD 237ML (BOOST) PO SCH ×2 (13:00→18:00)
[2018-01-08 15:00] VITALS: BP 145/69
[2018-01-08] MEDS ORDERED: VANCOMYCIN LEVEL IV ONE (17:30)
[2018-01-08] MEDS: vancomycin/NS 1 GM ADD-VANTAGE 250 ML IV SCH (17:35)
[2018-01-08 19:00] VITALS: BP 174/78
[2018-01-08] MEDS ORDERED: LORazepam 2 mg/ml vial IV ONE (20:25)
[2018-01-08 23:00] VITALS: BP 163/69
[2018-01-08] MEDS: acetaminophen 325mg tablet PO PRN (23:55)
[2018-01-09] MEDS: HYDROcodone/acetaminophen 10/325mg tab PO PRN ×2 (02:13→08:05)
[2018-01-09 03:00] VITALS: BP 145/75
[2018-01-09] MEDS: ipratropium/albuterol 3ml nebule NEB SCH ×6 (03:01→23:32)
[2018-01-09 05:30] VITALS: BP 169/64
[2018-01-09 06:05] LABS: BASOPHILS % (AUTO) 0 % (0-1); EOSINOPHILS % (AUTO) 0.8 % (0-6); HEMATOCRIT 30.3 % (35.0-45.0); HEMOGLOBIN 10.1 g/dl (12.0-16.0); LYMPHOCYTES # (AUTO) 0.5 X10'3 (1.1-4.8); MEAN CORPUSCULAR HEMOGLOBIN 28.1 PG (27.0-31.0); MEAN CORPUSCULAR HGB CONC 33.3 % (33.0-36.5); MEAN CORPUSCULAR VOLUME 84.4 FL (78-98); MEAN PLATELET VOLUME 8.1 FL (7.4-10.4); MONOCYTES # (AUTO) 0.7 X10'3 (0-0.9); MONOCYTES % (AUTO) 13.3 % (2-12); NEUTROPHILS # (AUTO) 3.9 X10'3 (1.8-7.7); NEUTROPHILS % (AUTO) 76.9 % (42-75); PLATELET COUNT 255 X10'3 (140-440); RED BLOOD COUNT 3.59 X10'6 (4.20-5.60); RED CELL DISTRIBUTION WIDTH 15.4 % (11.5-14.5); WHITE BLOOD COUNT 5.1 X10'3 (4.5-11.0)
[2018-01-09 06:17] LABS: PROTHROMBIN TIME 40.5 SECONDS (9.0-12.0)
[2018-01-09 06:23] LABS: INR 4.1 INR
[2018-01-09 06:30] LABS: ALANINE AMINOTRANSFERASE 18 U/L (12-78); ALBUMIN 2.7 G/DL (3.4-5.0); ALBUMIN/GLOBULIN RATIO 0.8 (1.1-1.5); ALKALINE PHOSPHATASE 37 IU/L (46-116); ANION GAP 5 (8-16); ASPARTATE AMINO TRANSFERASE 15 U/L (10-37); BILIRUBIN,TOTAL 0.3 MG/DL (0.1-1.0); BLOOD UREA NITROGEN 47 MG/DL (7-18); BUN/CREATININE RATIO 19.8 (6.6-38.0); CALCIUM 8.3 MG/DL (8.5-10.1); CHLORIDE 104 MMOL/L (99-107); CREATININE 2.37 MG/DL (0.40-0.90); GLUCOSE 129 MG/DL (70-104); POTASSIUM 4.5 MMOL/L (3.5-5.1); SODIUM 137 MMOL/L (135-145); TOTAL CARBON DIOXIDE 27.9 MMOL/L (24-32); TOTAL PROTEIN 5.9 G/DL (6.4-8.2); eGFR 20 ML/MIN
[2018-01-09] MEDS: budesonide 0.5mg/2ml UD nebule IH SCH ×2 (07:01→19:01)
[2018-01-09] MEDS: methylPREDNISolone sod succ 125mg/2ml vial IV SCH ×2 (07:51→16:53)
[2018-01-09] MEDS: gabapentin 300mg capsule PO SCH (07:51)
[2018-01-09] MEDS: ferrous gluconate 324mg tablet PO SCH (07:52)
[2018-01-09] MEDS: benzonatate 100mg capsule PO SCH ×3 (07:52→16:52)
[2018-01-09] MEDS: atorvastatin 10mg tablet PO SCH (07:52)
[2018-01-09] MEDS: pantoprazole 40mg Tablet.DR PO SCH (07:52)
[2018-01-09] MEDS: folic acid 0.4mg tablet PO SCH (07:52)
[2018-01-09] MEDS: metroNIDAZOLE-Flagyl 500mg/NS 100 ML IV SCH (07:53)
[2018-01-09] MEDS: cefepime 1GM/NS ADD-VANTAGE 100 ML IV SCH ×2 (07:53→19:45)
[2018-01-09] MEDS: carVEDilol 3.125mg tablet PO SCH ×2 (07:53→19:45)
[2018-01-09] MEDS: docusate sod 100mg capsule PO SCH ×2 (07:53→19:45)
[2018-01-09] MEDS: citalopram 20mg tablet PO SCH (07:53)
[2018-01-09] MEDS: LACTOSE-FREE FOOD 237ML (BOOST) PO SCH ×3 (08:00→18:00)
[2018-01-09] MEDS: clopidogrel 75mg tablet PO SCH (08:02)
[2018-01-09] MEDS ORDERED: furosemide 40mg/4ml inj IV ONE (09:20)
[2018-01-09] MEDS: albuterol 2.5 MG/3 ML nebule NEB PRN (09:57)
[2018-01-09] MEDS: amLODIPine 5mg tablet PO SCH (11:56)
[2018-01-09] MEDS: vancomycin inj 500 MG in normal saline 100ml IV soln 100 ML IV SCH (11:56)
[2018-01-09 15:00] VITALS: BP 156/76
[2018-01-09] MEDS: metroNIDAZOLE 500mg tablet PO SCH (16:52)
[2018-01-09 19:00] VITALS: BP 147/58
[2018-01-09 22:00] VITALS: BP 150/74
[2018-01-10] MEDS: benzonatate 100mg capsule PO SCH ×3 (00:17→15:36)
[2018-01-10] MEDS: metroNIDAZOLE 500mg tablet PO SCH ×3 (00:17→15:42)
[2018-01-10] MEDS: methylPREDNISolone sod succ 125mg/2ml vial IV SCH ×3 (00:23→15:43)
[2018-01-10 02:00] VITALS: BP 144/67
[2018-01-10] MEDS: ipratropium/albuterol 3ml nebule NEB SCH ×2 (03:07→07:13)
[2018-01-10 05:59] LABS: BASOPHILS % (AUTO) 0 % (0-1); EOSINOPHILS # (AUTO) 0.1 X10'3 (0-0.9); EOSINOPHILS % (AUTO) 1.4 % (0-6); HEMATOCRIT 30.5 % (35.0-45.0); HEMOGLOBIN 10.1 g/dl (12.0-16.0); LYMPHOCYTES # (AUTO) 0.4 X10'3 (1.1-4.8); LYMPHOCYTES % (AUTO) 7.8 % (21-51); MEAN CORPUSCULAR HEMOGLOBIN 28.1 PG (27.0-31.0); MEAN CORPUSCULAR HGB CONC 33.2 % (33.0-36.5); MEAN CORPUSCULAR VOLUME 84.7 FL (78-98); MEAN PLATELET VOLUME 8.3 FL (7.4-10.4); MONOCYTES # (AUTO) 0.5 X10'3 (0-0.9); MONOCYTES % (AUTO) 8.9 % (2-12); NEUTROPHILS # (AUTO) 4.5 X10'3 (1.8-7.7); NEUTROPHILS % (AUTO) 81.9 % (42-75); PLATELET COUNT 265 X10'3 (140-440); RED CELL DISTRIBUTION WIDTH 15.7 % (11.5-14.5); WHITE BLOOD COUNT 5.5 X10'3 (4.5-11.0)
[2018-01-10 06:00] VITALS: BP 153/67
[2018-01-10 06:08] LABS: INR 2.5 INR; PROTHROMBIN TIME 24.6 SECONDS (9.0-12.0)
[2018-01-10 06:17] LABS: ALANINE AMINOTRANSFERASE 17 U/L (12-78); ALBUMIN 2.7 G/DL (3.4-5.0); ALBUMIN/GLOBULIN RATIO 0.8 (1.1-1.5); ALKALINE PHOSPHATASE 43 IU/L (46-116); ANION GAP 6 (8-16); ASPARTATE AMINO TRANSFERASE 7 U/L (10-37); BILIRUBIN,TOTAL 0.4 MG/DL (0.1-1.0); BLOOD UREA NITROGEN 48 MG/DL (7-18); BUN/CREATININE RATIO 21.9 (6.6-38.0); CALCIUM 8.4 MG/DL (8.5-10.1); CHLORIDE 103 MMOL/L (99-107); CREATININE 2.19 MG/DL (0.40-0.90); GLUCOSE 141 MG/DL (70-104); POTASSIUM 4.2 MMOL/L (3.5-5.1); SODIUM 138 MMOL/L (135-145); TOTAL CARBON DIOXIDE 28.6 MMOL/L (24-32); eGFR 22 ML/MIN
[2018-01-10] MEDS: budesonide 0.5mg/2ml UD nebule IH SCH (07:15)
[2018-01-10] MEDS: pantoprazole 40mg Tablet.DR PO SCH (08:06)
[2018-01-10] MEDS: gabapentin 300mg capsule PO SCH (08:06)
[2018-01-10] MEDS: clopidogrel 75mg tablet PO SCH (08:06)
[2018-01-10] MEDS: carVEDilol 3.125mg tablet PO SCH (08:07)
[2018-01-10] MEDS: folic acid 0.4mg tablet PO SCH (08:07)
[2018-01-10] MEDS: docusate sod 100mg capsule PO SCH (08:07)
[2018-01-10] MEDS: atorvastatin 10mg tablet PO SCH (08:07)
[2018-01-10] MEDS: amLODIPine 5mg tablet PO SCH (08:07)
[2018-01-10] MEDS: cefepime 1GM/NS ADD-VANTAGE 100 ML IV SCH (08:08)
[2018-01-10] MEDS: citalopram 20mg tablet PO SCH (08:08)
[2018-01-10] MEDS: ferrous gluconate 324mg tablet PO SCH (08:08)
[2018-01-10] MEDS: LACTOSE-FREE FOOD 237ML (BOOST) PO SCH ×2 (08:09→13:24)
[2018-01-10] MEDS: HYDROcodone/acetaminophen 10/325mg tab PO PRN ×2 (10:46→15:43)
[2018-01-10 11:00] VITALS: BP 167/70
[2018-01-10] MEDS: vancomycin inj 500 MG in normal saline 100ml IV soln 100 ML IV SCH (11:00)
[2018-01-10 13:01] LABS: ABG BASE EXCESS 4.6 mmol/L (-2.0-3.0); ABG HCO3 29.8 mmol/L (22.0-26.0); ABG OXYGEN SATURATION 89.5 % (95-98); ABG PCO2 (T) 46.6 mmHg (32.0-45.0); ABG PH (T) 7.423 (7.350-7.450); ALLEN'S TEST Positive; FCOHb 0.2 % (0.5-1.5); FLOW 2 L/min; FMetHb 0.1 % (0.3-1.12); FO2Hb 89.2 % (94-100); TOTAL HEMOGLOBIN 11.5 G/dl (12.0-16.0)
[2018-01-10 15:00] VITALS: BP 173/62
[2018-01-10] MEDS: albuterol 2.5 MG/3 ML nebule NEB PRN (16:41)
[2018-01-10] MEDS: bisacodyl 10mg suppository rectal RC PRN (16:50)
[2018-01-10] MEDS ORDERED: lactobacillus rhamnosus 10,000 MMU CELLS/CAPSULE PO SCH (20:00)
[2018-01-10] MEDS ORDERED: warfarin 1mg tablet PO ONE (21:00)
[2018-01-12] MEDS ORDERED: VANCOMYCIN LEVEL IV ONE (10:30)
== END 2018-01-10 17:59 | DRG 682 ==
LOC: ER 14:09 → ED HOLD 16:17 → SUR 3N 18:00 → PCU 3S 01-04 20:50
PROVIDERS: ADMIT Family Medicine; ATTEND Internal Medicine
PROC: 30233N1 Transfusion of Nonautologous Red Blood Cells into Peripheral Vein, Percutaneous Approach (ICD-10-PCS; principal; 2018-01-01)
PROC: 5A09357 Assistance with Respiratory Ventilation, Less than 24 Consecutive Hours, Continuous Positive Airway Pressure (ICD-10-PCS; 2018-01-04)
PROC: 5A09357 Assistance with Respiratory Ventilation, Less than 24 Consecutive Hours, Continuous Positive Airway Pressure (ICD-10-PCS; 2018-01-05)
PROC: 5A09357 Assistance with Respiratory Ventilation, Less than 24 Consecutive Hours, Continuous Positive Airway Pressure (ICD-10-PCS; 2018-01-06)
PROC: 5A09357 Assistance with Respiratory Ventilation, Less than 24 Consecutive Hours, Continuous Positive Airway Pressure (ICD-10-PCS; 2018-01-07)
PROC: 5A09357 Assistance with Respiratory Ventilation, Less than 24 Consecutive Hours, Continuous Positive Airway Pressure (ICD-10-PCS; 2018-01-08)
PROC: 5A09357 Assistance with Respiratory Ventilation, Less than 24 Consecutive Hours, Continuous Positive Airway Pressure (ICD-10-PCS; 2018-01-10)
DX: N17.9 Acute kidney failure, unspecified (principal); J96.20 Acute and chronic respiratory failure, unspecified whether with hypoxia or hypercapnia; J18.9 Pneumonia, unspecified organism; D68.59 Other primary thrombophilia; E87.2 Acidosis; J44.0 Chronic obstructive pulmonary disease with (acute) lower respiratory infection; J44.1 Chronic obstructive pulmonary disease with (acute) exacerbation; J98.11 Atelectasis; N18.4 Chronic kidney disease, stage 4 (severe); I25.10 Atherosclerotic heart disease of native coronary artery without angina pectoris; D63.8 Anemia in other chronic diseases classified elsewhere; E78.00 Pure hypercholesterolemia, unspecified; E78.5 Hyperlipidemia, unspecified; R33.9 Retention of urine, unspecified; F41.9 Anxiety disorder, unspecified; I12.9 Hypertensive chronic kidney disease with stage 1 through stage 4 chronic kidney disease, or unspecified chronic kidney disease; Z90.49 Acquired absence of other specified parts of digestive tract; Z90.710 Acquired absence of both cervix and uterus; Z95.1 Presence of aortocoronary bypass graft; Z99.81 Dependence on supplemental oxygen; Z88.6 Allergy status to analgesic agent; Z79.899 Other long term (current) drug therapy; Z79.01 Long term (current) use of anticoagulants; Z86.711 Personal history of pulmonary embolism; Z86.79 Personal history of other diseases of the circulatory system; Z87.891 Personal history of nicotine dependence
CPT/HCPCS: 36415; 36600; 71045; 71250; 76775; 80053; 80202; 81003; 82803; 82948; 83036; 83540; 83550; 83735; 83880; 84100; 85018; 85025; 85610; 85730; 86885; 86900; 86901; 86920; 87040; 87070; 92616; 94640; 94660; 94667; 94668; 94760; 97110; 97116; 97162; 97530; 99285; A4315; A6212; A6213; J0360; J0692; J1644; J1940; J1956; J2060; J2270; J2543; J2930; J3370; J3490; J7030; J7626; P9016

== ENCOUNTER 2021-02-03 10:23 | Emergency (ER) | payer MEDICARE, OTHER ==
[~2021-02-03] VITALS: Ht 170.2 cm; Wt 53.0 kg
[~2021-02-03 10:23] MED LIST changes: -ALEN70TA48 PO; -CITA-278 PO; -COU5T PO; +FERR325T28 PO; -FOLI0.4T2 PO; +FOLI0.4T6 PO; -FURO-150 PO; -GUAI120L55 PO; -POTA20TA19 PO; +WARF-113 PO
[2021-02-03 10:38] VITALS: BP 125/46
[2021-02-03] MEDS ORDERED: CEPH250T PO (13:13)
== END 2021-02-03 14:09 | disposition home or self-care (01) ==
LOC: ER 10:24
DX: L03.115 Cellulitis of right lower limb (principal); I27.20 Pulmonary hypertension, unspecified; I25.10 Atherosclerotic heart disease of native coronary artery without angina pectoris; E78.00 Pure hypercholesterolemia, unspecified; Z88.6 Allergy status to analgesic agent; Z79.899 Other long term (current) drug therapy; Z86.711 Personal history of pulmonary embolism; Z79.01 Long term (current) use of anticoagulants; Z99.81 Dependence on supplemental oxygen
CPT/HCPCS: 93971; 99284

== ENCOUNTER 2021-02-11 20:14 | Emergency (ER) | payer MEDICARE ==
[~2021-02-11] VITALS: Ht 170.2 cm; Wt 52.7 kg
[~2021-02-11 20:14] MED LIST changes: +CEPH250T PO
[2021-02-11 20:33] VITALS: BP 87/66
[2021-02-11] MEDS ORDERED: LEVO500T89 PO (20:52)
[2021-02-11] MEDS ORDERED: HYDR-3686 PO (20:53)
== END 2021-02-11 21:08 | disposition home or self-care (01) ==
LOC: ER 20:14
DX: L03.115 Cellulitis of right lower limb (principal); I25.10 Atherosclerotic heart disease of native coronary artery without angina pectoris; E78.00 Pure hypercholesterolemia, unspecified; J44.9 Chronic obstructive pulmonary disease, unspecified; Z86.711 Personal history of pulmonary embolism; Z90.49 Acquired absence of other specified parts of digestive tract; Z95.5 Presence of coronary angioplasty implant and graft; Z90.710 Acquired absence of both cervix and uterus; Z87.81 Personal history of (healed) traumatic fracture; Z88.6 Allergy status to analgesic agent; Z79.2 Long term (current) use of antibiotics; Z79.01 Long term (current) use of anticoagulants; Z79.899 Other long term (current) drug therapy
CPT/HCPCS: 99283

== ENCOUNTER 2021-02-14 15:35 | Emergency (ER) | payer MEDICARE ==
[~2021-02-14] VITALS: Ht 170.2 cm; Wt 53.2 kg
[~2021-02-14 15:35] MED LIST changes: +HYDR-3686 PO; +LEVO500T89 PO
[2021-02-14 17:05] LABS: BASOPHILS # (AUTO) 0.1 X10'3 (0-0.2); BASOPHILS % (AUTO) 0.9 % (0-1); EOSINOPHILS # (AUTO) 0.3 X10'3 (0-0.9); HEMATOCRIT 31.8 % (35.0-45.0); HEMOGLOBIN 10.5 g/dl (12.0-16.0); LYMPHOCYTES # (AUTO) 1.6 X10'3 (1.1-4.8); MEAN CORPUSCULAR HEMOGLOBIN 28.9 PG (27.0-31.0); MEAN CORPUSCULAR HGB CONC 33.1 g/dL (33.0-36.5); MEAN CORPUSCULAR VOLUME 87.5 FL (78-98); MEAN PLATELET VOLUME 7.9 FL (7.4-10.4); MONOCYTES % (AUTO) 10.9 % (2-12); NEUTROPHILS # (AUTO) 5.8 X10'3 (1.8-7.7); NEUTROPHILS % (AUTO) 66.2 % (42-75); PLATELET COUNT 271 X10'3 (140-440); RED BLOOD COUNT 3.63 X10'6 (4.20-5.60); RED CELL DISTRIBUTION WIDTH 13.4 % (11.5-14.5); WHITE BLOOD COUNT 8.7 X10'3 (4.5-11.0)
[2021-02-14 17:22] LABS: ALANINE AMINOTRANSFERASE 37 U/L (12-78); ALBUMIN/GLOBULIN RATIO 1.1 (1.1-1.5); ALKALINE PHOSPHATASE 75 IU/L (46-116); ANION GAP 11 (8-16); ASPARTATE AMINO TRANSFERASE 34 U/L (10-37); BILIRUBIN,TOTAL 0.4 MG/DL (0.1-1.0); BLOOD UREA NITROGEN 39 MG/DL (7-18); BUN/CREATININE RATIO 14.8 (6.6-38.0); CALCIUM 8.9 MG/DL (8.5-10.1); CHLORIDE 102 MMOL/L (99-107); CREATININE 2.63 MG/DL (0.40-0.90); GLUCOSE 100 MG/DL (70-104); SODIUM 140 MMOL/L (135-145); TOTAL CARBON DIOXIDE 26.7 MMOL/L (24-32); TOTAL PROTEIN 7.7 G/DL (6.4-8.2); eGFR 18 ML/MIN
[2021-02-14] MEDS ORDERED: diphenhydrAMINE 25mg capsule PO ONE (18:35)
[2021-02-14] MEDS ORDERED: DIPH25TA62 PO (19:58)
[2021-02-14 22:40] VITALS: BP 146/74
== END 2021-02-14 22:41 | disposition home or self-care (01) ==
LOC: ER 15:35
DX: I73.9 Peripheral vascular disease, unspecified (principal); L50.0 Allergic urticaria; I25.10 Atherosclerotic heart disease of native coronary artery without angina pectoris; E78.00 Pure hypercholesterolemia, unspecified; J44.9 Chronic obstructive pulmonary disease, unspecified; Z86.711 Personal history of pulmonary embolism; Z90.710 Acquired absence of both cervix and uterus; Z95.1 Presence of aortocoronary bypass graft; Z88.8 Allergy status to other drugs, medicaments and biological substances; Z79.2 Long term (current) use of antibiotics; Z79.01 Long term (current) use of anticoagulants; Z79.899 Other long term (current) drug therapy
CPT/HCPCS: 36415; 71045; 80053; 83605; 84145; 85025; 87040; 99284; Q0163

== ENCOUNTER 2021-08-08 18:34 | Emergency (ER) | payer MEDICARE ==
[~2021-08-08] VITALS: Ht 167.6 cm; Wt 54.5 kg
[~2021-08-08 18:34] MED LIST changes: -CEPH250T PO; +DIPH25TA62 PO; -HYDR-3686 PO; -LEVO500T89 PO
[2021-08-08 19:18] VITALS: BP 132/97
[2021-08-08 19:55] LABS: BASOPHILS # (AUTO) 0.1 X10'3 (0-0.2); BASOPHILS % (AUTO) 1.2 % (0-1); EOSINOPHILS # (AUTO) 0.1 X10'3 (0-0.9); EOSINOPHILS % (AUTO) 1.8 % (0-6); HEMATOCRIT 24.4 % (35.0-45.0); LYMPHOCYTES # (AUTO) 1.3 X10'3 (1.1-4.8); LYMPHOCYTES % (AUTO) 16.5 % (21-51); MEAN CORPUSCULAR HEMOGLOBIN 29.4 PG (27.0-31.0); MEAN CORPUSCULAR HGB CONC 32.7 g/dL (33.0-36.5); MEAN CORPUSCULAR VOLUME 90.1 FL (78-98); MEAN PLATELET VOLUME 7.9 FL (7.4-10.4); MONOCYTES # (AUTO) 0.8 X10'3 (0-0.9); MONOCYTES % (AUTO) 10.7 % (2-12); NEUTROPHILS # (AUTO) 5.4 X10'3 (1.8-7.7); NEUTROPHILS % (AUTO) 69.8 % (42-75); PLATELET COUNT 252 X10'3 (140-440); RED BLOOD COUNT 2.71 X10'6 (4.20-5.60); RED CELL DISTRIBUTION WIDTH 13.4 % (11.5-14.5); WHITE BLOOD COUNT 7.8 X10'3 (4.5-11.0)
[2021-08-08 20:10] LABS: ALANINE AMINOTRANSFERASE 28 U/L (12-78); ALBUMIN 3.7 G/DL (3.4-5.0); ALBUMIN/GLOBULIN RATIO 1.1 (1.1-1.5); ALKALINE PHOSPHATASE 66 IU/L (46-116); ANION GAP 10 (8-16); ASPARTATE AMINO TRANSFERASE 20 U/L (10-37); BILIRUBIN,TOTAL 0.3 MG/DL (0.1-1.0); BLOOD UREA NITROGEN 49 MG/DL (7-18); BUN/CREATININE RATIO 12.4 (6.6-38.0); CALCIUM 8.8 MG/DL (8.5-10.1); CHLORIDE 103 MMOL/L (99-107); CREATININE 3.96 MG/DL (0.40-0.90); GLUCOSE 112 MG/DL (70-104); POTASSIUM 4.5 MMOL/L (3.5-5.1); SODIUM 139 MMOL/L (135-145); TOTAL CARBON DIOXIDE 25.6 MMOL/L (24-32); TOTAL PROTEIN 7.1 G/DL (6.4-8.2); eGFR 11 ML/MIN
[2021-08-08] MEDS ORDERED: CefTRIAXone 2gm/D5W 50ml BAG 50 ML IV ONE (20:35)
[2021-08-08] MEDS ORDERED: normal saline 1000ML IV soln IVB ONE (20:35)
[2021-08-08 20:44] LABS: CLARITY,URINE CLOUDY (Clear); COLOR,URINE YELLOW (Yellow); GLUCOSE, URINE NEGATIVE (Neg); KETONES,URINE NEGATIVE (Neg); LEUKOCYTE ESTERASE ,URINE MODERATE (Neg); NITRITES, URINE POSITIVE (Neg); OCCULT BLOOD,URINE TRACE-INTACT (Neg); PROTEIN,URINE TRACE mg/dl (Neg); UROBILINOGEN,URINE 0.2 E.U/dL (0.2-1.0)
[2021-08-08 20:50] LABS: UA COLLECTION TYPE NON-SPECIFIED
[2021-08-08 20:51] LABS: SQUAMOUS EPITHELIAL CELL,UR MODERATE /LPF (FEW)
[2021-08-08 20:52] LABS: BACTERIA,URINE 4+ /HPF (Neg); WBC CLUMPS,URINE FEW /HPF (NEGATIVE); WBC,URINE TNTC /HPF (0-4)
[2021-08-08 20:53] LABS: RENAL CELLS, URINE FEW /HPF
[2021-08-08] MEDS ORDERED: CEPH250T PO (20:59)
== END 2021-08-08 22:22 ==
LOC: ER 22:21
DX: N39.0 Urinary tract infection, site not specified (principal); R51.9 Headache, unspecified; R06.02 Shortness of breath; I25.10 Atherosclerotic heart disease of native coronary artery without angina pectoris; E78.00 Pure hypercholesterolemia, unspecified; J44.9 Chronic obstructive pulmonary disease, unspecified; Z86.711 Personal history of pulmonary embolism; I27.20 Pulmonary hypertension, unspecified; Z90.49 Acquired absence of other specified parts of digestive tract; Z95.5 Presence of coronary angioplasty implant and graft; Z90.710 Acquired absence of both cervix and uterus; Z98.890 Other specified postprocedural states; Z88.8 Allergy status to other drugs, medicaments and biological substances; Z79.01 Long term (current) use of anticoagulants; Z79.899 Other long term (current) drug therapy; Z99.81 Dependence on supplemental oxygen
CPT/HCPCS: 36415; 71045; 80053; 81001; 83605; 84145; 85025; 87040; 87088; 93005; 96365; 99285; J0696; J7030; 87077; 87186

== ENCOUNTER 2021-08-11 16:12 | Emergency (ER) | payer MEDICARE ==
[~2021-08-11] VITALS: Ht 170.2 cm; Wt 52.3 kg
[~2021-08-11 16:12] MED LIST changes: +CEPH250T PO
[2021-08-11 16:36] VITALS: BP 138/40
[2021-08-11 17:05] LABS: BASOPHILS # (AUTO) 0.1 X10'3 (0-0.2); BASOPHILS % (AUTO) 1.4 % (0-1); EOSINOPHILS # (AUTO) 0.2 X10'3 (0-0.9); EOSINOPHILS % (AUTO) 3.1 % (0-6); HEMATOCRIT 23.5 % (35.0-45.0); HEMOGLOBIN 7.7 g/dl (12.0-16.0); LYMPHOCYTES # (AUTO) 1.1 X10'3 (1.1-4.8); LYMPHOCYTES % (AUTO) 18.3 % (21-51); MEAN CORPUSCULAR HEMOGLOBIN 29.3 PG (27.0-31.0); MEAN CORPUSCULAR HGB CONC 32.6 g/dL (33.0-36.5); MEAN CORPUSCULAR VOLUME 89.9 FL (78-98); MONOCYTES # (AUTO) 0.7 X10'3 (0-0.9); MONOCYTES % (AUTO) 10.8 % (2-12); NEUTROPHILS # (AUTO) 4.1 X10'3 (1.8-7.7); NEUTROPHILS % (AUTO) 66.4 % (42-75); PLATELET COUNT 244 X10'3 (140-440); RED BLOOD COUNT 2.61 X10'6 (4.20-5.60); RED CELL DISTRIBUTION WIDTH 13.5 % (11.5-14.5); WHITE BLOOD COUNT 6.2 X10'3 (4.5-11.0)
[2021-08-11 17:20] LABS: ALANINE AMINOTRANSFERASE 29 U/L (12-78); ALBUMIN 3.4 G/DL (3.4-5.0); ALBUMIN/GLOBULIN RATIO 1.1 (1.1-1.5); ALKALINE PHOSPHATASE 59 IU/L (46-116); ANION GAP 11 (8-16); ASPARTATE AMINO TRANSFERASE 24 U/L (10-37); BILIRUBIN,TOTAL 0.3 MG/DL (0.1-1.0); BLOOD UREA NITROGEN 43 MG/DL (7-18); BUN/CREATININE RATIO 12.5 (6.6-38.0); CALCIUM 8.8 MG/DL (8.5-10.1); CHLORIDE 106 MMOL/L (99-107); CREATININE 3.45 MG/DL (0.40-0.90); GLUCOSE 135 MG/DL (70-104); POTASSIUM 4.8 MMOL/L (3.5-5.1); SODIUM 143 MMOL/L (135-145); TOTAL CARBON DIOXIDE 25.6 MMOL/L (24-32); TOTAL PROTEIN 6.6 G/DL (6.4-8.2); eGFR 13 ML/MIN
== END 2021-08-11 18:07 | disposition home or self-care (01) ==
LOC: ER 16:13
DX: N39.0 Urinary tract infection, site not specified (principal); I12.9 Hypertensive chronic kidney disease with stage 1 through stage 4 chronic kidney disease, or unspecified chronic kidney disease; N18.4 Chronic kidney disease, stage 4 (severe); I25.10 Atherosclerotic heart disease of native coronary artery without angina pectoris; E78.00 Pure hypercholesterolemia, unspecified; J44.9 Chronic obstructive pulmonary disease, unspecified; I27.20 Pulmonary hypertension, unspecified; Z87.01 Personal history of pneumonia (recurrent); Z90.89 Acquired absence of other organs; Z95.5 Presence of coronary angioplasty implant and graft; Z90.710 Acquired absence of both cervix and uterus; Z95.0 Presence of cardiac pacemaker; Z98.890 Other specified postprocedural states; Z88.8 Allergy status to other drugs, medicaments and biological substances; Z79.2 Long term (current) use of antibiotics; Z79.899 Other long term (current) drug therapy
CPT/HCPCS: 36415; 80053; 85025; 99283

== ENCOUNTER 2023-02-07 09:45 | Emergency (ER) | payer MEDICARE, OTHER ==
[~2023-02-07] VITALS: Ht 170.2 cm; Wt 46.4 kg
[2023-02-07] VITALS (7 sets, daily range): BP systolic 99–125; BP diastolic 49–91; PULSE 74–88; RESP 12–16; TEMP 97.8–98.1; O2SAT 100
[~2023-02-07 09:45] MED LIST changes: -CEPH250T PO
[2023-02-07 10:38] LABS: BASOPHILS # (AUTO) 0.1 X10'3 (0-0.2); BASOPHILS % (AUTO) 1.5 % (0-1); EOSINOPHILS # (AUTO) 0.3 X10'3 (0-0.9); EOSINOPHILS % (AUTO) 4.1 % (0-6); LYMPHOCYTES # (AUTO) 1.2 X10'3 (1.1-4.8); LYMPHOCYTES % (AUTO) 16.5 % (21-51); MEAN CORPUSCULAR HEMOGLOBIN 28.7 PG (27.0-31.0); MEAN CORPUSCULAR HGB CONC 31.9 g/dL (33.0-36.5); MEAN CORPUSCULAR VOLUME 89.7 FL (78-98); MEAN PLATELET VOLUME 7.3 FL (7.4-10.4); MONOCYTES # (AUTO) 0.8 X10'3 (0-0.9); NEUTROPHILS # (AUTO) 4.8 X10'3 (1.8-7.7); NEUTROPHILS % (AUTO) 66.9 % (42-75); PLATELET COUNT 281 X10'3 (140-440); RED BLOOD COUNT 2.34 X10'6 (4.20-5.60); WHITE BLOOD COUNT 7.2 X10'3 (4.5-11.0)
[2023-02-07 10:48] LABS: HEMOGLOBIN 6.7 g/dl (12.0-16.0)
[2023-02-07 10:50] LABS: APTT 27 SECONDS (22-32)
[2023-02-07 10:53] LABS: ALANINE AMINOTRANSFERASE 92 U/L (12-78); ALBUMIN 3.4 G/DL (3.4-5.0); ALBUMIN/GLOBULIN RATIO 0.9 (1.1-1.5); ALKALINE PHOSPHATASE 67 IU/L (46-116); ANION GAP 10 (8-16); ASPARTATE AMINO TRANSFERASE 68 U/L (10-37); BILIRUBIN,TOTAL 0.3 MG/DL (0.1-1.0); BLOOD UREA NITROGEN 51 MG/DL (7-18); BUN/CREATININE RATIO 10.4 (10.0-20.0); CALCIUM 9.9 MG/DL (8.5-10.1); CHLORIDE 108 MMOL/L (99-107); CREATININE 4.92 MG/DL (0.40-0.90); GLUCOSE 112 MG/DL (70-104); POTASSIUM 4.8 MMOL/L (3.5-5.1); SODIUM 144 MMOL/L (135-145); TOTAL CARBON DIOXIDE 26.3 MMOL/L (24-32); eGFR 8 ML/MIN
[2023-02-07 12:06] LABS: FERRITIN 81 NG/ML (8-252)
[2023-02-07 12:19] LABS: RED BLOOD COUNT 2.07 X10'6 (4.20-5.60); RETICULOCYTE % (AUTO) 0.6 % (0.5-1.5)
[2023-02-07 12:40] LABS: % IRON SATURATION 23 % (11-46); IRON 59 UG/DL (49-151); TOTAL IRON BINDING CAPACITY 255 UG/DL (259-388)
[2023-02-07] MEDS ORDERED: EPOETIN ALFA-EPBX 20,000 UNIT/ML 1 ML MDV SQ ONE (15:15)
[2023-02-07 15:59] LABS: CLARITY,URINE CLOUDY (Clear); COLOR,URINE YELLOW (Yellow); GLUCOSE, URINE NEGATIVE (Neg); KETONES,URINE NEGATIVE (Neg); LEUKOCYTE ESTERASE ,URINE MODERATE (Neg); NITRITES, URINE NEGATIVE (Neg); OCCULT BLOOD,URINE SMALL (Neg); PH,URINE 6.5 (4.8-8.0); PROTEIN,URINE 100 mg/dl (Neg); UROBILINOGEN,URINE 0.2 E.U/dL (0.2-1.0)
[2023-02-07 16:01] LABS: UA COLLECTION TYPE CLN CATCH MIDSTREAM
[2023-02-07 16:06] LABS: BACTERIA,URINE 4+ /HPF (Neg); SQUAMOUS EPITHELIAL CELL,UR MODERATE /LPF (FEW); WBC CLUMPS,URINE MANY /HPF (NEGATIVE)
[2023-02-07 16:07] LABS: RBC,URINE 0-2 /HPF (0-2); TRANSITIONAL EPI CELLS,URINE FEW /HPF; WBC,URINE 50-100 /HPF (0-4)
[2023-02-07] MEDS ORDERED: CEPH-585 PO (16:20)
[2023-02-07] MEDS ORDERED: cephalexin 250mg capsule PO ONE (16:35)
== END 2023-02-07 17:11 | disposition home or self-care (01) ==
LOC: ER 09:45
DX: D64.9 Anemia, unspecified (principal); N19 Unspecified kidney failure; N39.0 Urinary tract infection, site not specified; R09.02 Hypoxemia; I11.0 Hypertensive heart disease with heart failure; J44.9 Chronic obstructive pulmonary disease, unspecified; Z90.49 Acquired absence of other specified parts of digestive tract; Z98.890 Other specified postprocedural states; Z88.6 Allergy status to analgesic agent; Z79.899 Other long term (current) drug therapy; Z79.1 Long term (current) use of non-steroidal anti-inflammatories (NSAID); Z79.2 Long term (current) use of antibiotics
CPT/HCPCS: 36415; 36430; 71045; 80053; 81001; 82728; 83540; 83550; 85025; 85045; 85610; 85730; 86885; 86900; 86901; 86920; 87077; 87088; 87186; 93005; 96372; 99285; J7030; P9016; Q4081

== ENCOUNTER 2023-03-14 10:30 | Day surgery (SDC) | payer OTHER ==
[2023-03-14] VITALS (7 sets, daily range): BP systolic 109–175; BP diastolic 63–92; PULSE 75–94; RESP 16; TEMP 98.2; O2SAT 94–100
[~2023-03-14] VITALS: Ht 170.2 cm; Wt 46.8 kg
[~2023-03-14 10:30] MED LIST changes: +CEPH-585 PO
[2023-03-14] MEDS ORDERED: VITAMIN D (11:44)
[2023-03-14] MEDS ORDERED: EZET10TA6 PO (11:44)
[2023-03-14] MEDS ORDERED: [UNRECOGNIZED DRUG - OTHER] (11:44)
[2023-03-14] MEDS ORDERED: CITA-311 PO (11:44)
[2023-03-14] MEDS ORDERED: ROSU10TA28 PO (11:44)
[2023-03-14] MEDS ORDERED: ROSU10TA2 PO (11:44)
[2023-03-14] MEDS ORDERED: APIX2.5T PO (11:44)
[2023-03-14 13:05] LABS: BASOPHILS # (AUTO) 0.1 X10'3 (0-0.2); BASOPHILS % (AUTO) 0.9 % (0-1); EOSINOPHILS # (AUTO) 0.2 X10'3 (0-0.9); EOSINOPHILS % (AUTO) 2.4 % (0-6); HEMATOCRIT 23.1 % (35.0-45.0); HEMOGLOBIN 7.2 g/dl (12.0-16.0); LYMPHOCYTES # (AUTO) 0.9 X10'3 (1.1-4.8); LYMPHOCYTES % (AUTO) 12.2 % (21-51); MEAN CORPUSCULAR HEMOGLOBIN 28.1 PG (27.0-31.0); MEAN CORPUSCULAR HGB CONC 31.1 g/dL (33.0-36.5); MEAN CORPUSCULAR VOLUME 90.3 FL (78-98); MEAN PLATELET VOLUME 7.6 FL (7.4-10.4); MONOCYTES # (AUTO) 0.8 X10'3 (0-0.9); MONOCYTES % (AUTO) 10.5 % (2-12); NEUTROPHILS # (AUTO) 5.4 X10'3 (1.8-7.7); PLATELET COUNT 232 X10'3 (140-440); RED BLOOD COUNT 2.56 X10'6 (4.20-5.60); RED CELL DISTRIBUTION WIDTH 14.6 % (11.5-14.5); WHITE BLOOD COUNT 7.2 X10'3 (4.5-11.0)
[2023-03-14] MEDS ORDERED: normal saline 1000ml 1,000 ML IV SCH (14:10)
[2023-03-14] MEDS ORDERED: midazolam 1 mg/ML 2ml injection ONE (15:09)
[2023-03-14] MEDS ORDERED: fentaNYL/PF 50MCG/1 ML 2ML syringe ONE (15:09)
[2023-03-14] MEDS ORDERED: heparin 1,000unit/ml 10ml vial 10 ML ONE (15:09)
[2023-03-14] MEDS ORDERED: LIDOcaine 1% 30ml preserv. free vial ONE (15:30)
== END 2023-03-14 17:45 | disposition home or self-care (01) ==
LOC: SSTAY O 10:30
PROVIDERS: ATTEND Radiology Diagnostic Radiology
DX: N18.6 End stage renal disease (principal); I25.10 Atherosclerotic heart disease of native coronary artery without angina pectoris; D68.59 Other primary thrombophilia; Z88.8 Allergy status to other drugs, medicaments and biological substances; Z79.899 Other long term (current) drug therapy
CPT/HCPCS: 36415; 36558; 76937; 77001; 85025; 99152; 99153; C1750; C1769; J1644; J2250; J3010; J3490; J7030; A4615; A4620; A9270; C1894